=== PATIENT | female | born 1965 | race Caucasian/White ===

== ENCOUNTER → 2016-12-17 | Outpatient (CLI) | payer BC | END | disposition home or self-care (01) | LOC: CFH 11:56 → EDSTATUS 15:00 | PROVIDERS: ATTEND Family Medicine | DX: Z12.31 Encounter for screening mammogram for malignant neoplasm of breast (principal) | CPT/HCPCS: G0202 ==

== ENCOUNTER → 2018-06-06 | Outpatient (CLI) | payer BC | END | disposition home or self-care (01) | LOC: CFH 15:13 | PROVIDERS: ATTEND Family Medicine | DX: Z12.31 Encounter for screening mammogram for malignant neoplasm of breast (principal) | CPT/HCPCS: 77063; 77067 ==

== ENCOUNTER 2019-01-31 13:09 | Outpatient (CLI) | payer BC ==
[2019-04-18] MEDS ORDERED: PROG100C16 PO (10:43)
== END 2019-01-31 23:59 | disposition home or self-care (01) ==
LOC: CFH 13:09
PROVIDERS: ATTEND Family Medicine
DX: I08.8 Other rheumatic multiple valve diseases (principal); I77.810 Thoracic aortic ectasia
CPT/HCPCS: 71250; 93306

== ENCOUNTER 2021-03-03 14:12 | Outpatient (CLI) | payer BC ==
[~2021-03-03 14:12] MED LIST: PROG100C16 PO
== END 2021-03-03 23:59 | disposition home or self-care (01) ==
LOC: CFH 14:12
PROVIDERS: ATTEND Family Medicine
DX: N64.4 Mastodynia (principal)
CPT/HCPCS: 77062; 77066; G0279